=== PATIENT | male | born 1990 | race Caucasian/White ===

== ENCOUNTER 2021-09-26 21:41 | Emergency (ER) | payer OTHER ==
[~2021-09-26] VITALS: Ht 182.9 cm; Wt 140.6 kg
[2021-09-26 21:41] VITALS: BP 115/62
--- NOTE | 2021-09-26 21:41 | NUR ---
Placed Patient on bed 5.
--- NOTE | 2021-09-26 21:41 | NUR ---
PT BIBA ALS TO ER BED 5
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
--- NOTE | 2021-09-26 21:45 | NUR ---
KAVON EDOUARD AT BEDSIDE ASSESSING PT.
[2021-09-26] MEDS ORDERED: NACL 0.9% 1,000 ML IV ONE (22:20)
[2021-09-26] MEDS ORDERED: ONDANSETRON 4 MG/2 ML VIAL IVP ONE (22:20)
[2021-09-26] MEDS ORDERED: ALBUTEROL 0.083% 2.5 MG/3 ML NEBU INH ONE (23:05)
[2021-09-26] MEDS ORDERED: ONDA-188 SL (23:09)
--- NOTE | 2021-09-26 23:31 | NUR ---
Respiratory Therapist at bedside for respiratory intervention.
[2021-09-27 00:26] VITALS: BP 125/54
--- NOTE | 2021-09-27 00:27 | NUR ---
Patient discharged with v/s stable. Written and verbal after care instructions given and explained. Patient alert, oriented and verbalized understanding of instructions. Ambulatory with steady gait. All questions addressed prior to discharge. ID band removed. Patient advised to follow up with PMD. Rx of ZOFRAN given. Patient educated on indication of medication including possible reaction and side effects. Opportunity to ask questions provided and answered. VSS, A/OX4, UNLABORED BREATHING, AMBULATORY, AND CALM DEMEANOR.
== END 2021-09-27 00:27 | disposition home or self-care (01) ==
LOC: MED 21:41
DX: F10.129 Alcohol abuse with intoxication, unspecified (principal); J45.909 Unspecified asthma, uncomplicated; Y90.9 Presence of alcohol in blood, level not specified; Z90.49 Acquired absence of other specified parts of digestive tract; Z98.890 Other specified postprocedural states; Z72.89 Other problems related to lifestyle
CPT/HCPCS: 94640; 96361; 96374; 99283; J2405; J7030; J7613